=== PATIENT | male | born 1980 | race Caucasian/White ===

== ENCOUNTER 2024-02-29 01:40 | Emergency (ER) | payer OTHER ==
[2024-02-29] MEDS ORDERED: Ondansetron PF 4 MG/2 ML Vial ONE ×2 (02:09→09:33)
[2024-02-29] MEDS ORDERED: Sodium Chloride 0.9% 1,000 ML ONE ×2 (02:10→02:57)
[2024-02-29 02:25] LABS: #Lymphocytes 0.6 thou/uL (1.20-3.40); #Monocytes 0.5 thou/uL (0.11-0.59); #Neutrophils 7.9 thou/uL (1.40-6.50); %Basophils 0.3 % (0.0-1.0); %Eosinophils 0.2 % (0.0-10.0); %Lymphocytes 6.4 % (21.0-51.0); %Monocytes 5.6 % (0.0-10.0); %Neutrophils 87.5 % (42.0-75.0); Hematocrit 44.9 % (42.0-52.0); Hemoglobin 15.5 g/dL (14.0-18.0); Mean Corpuscular HGB CONC 34.5 g/dL (32.0-36.0); Mean Corpuscular Hemoglobin 30.4 pg (27.0-31.0); Mean Corpuscular Volume 88.2 fl (78.0-98.0); Mean Platelet Volume 7.2 fL (7.4-10.4); Platelet Count 264 10x3/uL (130-400); RBC Distribution Width 11.1 % (11.5-14.5); Red Blood Cell (RBC) Count 5.09 mill/uL (4.70-6.10); White Blood Cell (WBC) Count 9.1 10x3/uL (4.8-10.8)
[2024-02-29 02:29] LABS: ALT (SGPT) 17 U/L (8-55); AST (SGOT) 19 U/L (5-34); Albumin 4.4 g/dL (3.5-5.0); Alkaline Phosphatase 53 U/L (40-110); Anion Gap 19 mmol/L (10-20); BUN (Urea Nitrogen) 21 mg/dL (8.9-20.6); Bilirubin, Total 0.4 mg/dL (0.2-1.2); Calc. Creatinine Clearance 0 mL/min (70-130); Calcium 8.9 mg/dL (7.8-10.44); Carbon Dioxide 16 mmol/L (22-29); Chloride 105 mmol/L (98-107); Estimated GFR 74; Globulin 3.4 g/dL (2.4-3.5); Glucose 133 mg/dL (70-105); Lipase 150 U/L (8-78); Protein, Total 7.8 g/dL (6.0-8.3); Sodium 136 mmol/L (136-145)
[2024-02-29] MEDS ORDERED: Loperamide HCl 2 MG CAP ONE (02:30)
[2024-02-29 02:31] LABS: Troponin I Less than 0.010 ng/mL (< 0.028)
[2024-02-29] MEDS ORDERED: Morphine 2 MG/ML VIAL ONE (03:13)
[2024-02-29] MEDS ORDERED: Piperacillin/Tazobactam 4.5 GM VIAL ONE ×2 (05:14→11:24)
[2024-02-29] MEDS ORDERED: Pantoprazole 40 MG VIAL ONE (05:14)
[2024-02-29] MEDS ORDERED: Sodium Chloride 0.9% 100 ML ONE ×2 (05:14→11:25)
[2024-02-29 05:19] LABS: Troponin I 0.032 ng/mL (< 0.028)
[2024-02-29] MEDS ORDERED: Aspirin Chewable 81 MG TAB ONE (05:33)
[2024-02-29] MEDS ORDERED: Nitroglycerin 2% Ointment 1 INCH/1 GM Packet ONE ×2 (05:33→05:34)
[2024-02-29 08:23] LABS: Troponin I 0.044 ng/mL (< 0.028)
[2024-02-29] MEDS ORDERED: Iopamidol 370 76% 100 ML VIAL ONE (09:00)
[2024-02-29] MEDS ORDERED: Morphine 4 MG/ML VIAL ONE (12:10)
== END 2024-02-29 14:45 | disposition short-term general hospital (02) ==
LOC: NAV ERS 01:40
DX: K29.80 Duodenitis without bleeding (principal); R19.7 Diarrhea, unspecified; R10.9 Unspecified abdominal pain; R07.89 Other chest pain; R79.89 Other specified abnormal findings of blood chemistry; R74.8 Abnormal levels of other serum enzymes; Z87.891 Personal history of nicotine dependence
CPT/HCPCS: 74177; 80053; 83690; 84484; 85025; 93005; 96361; 96365; 96366; 96375; 96376; J2272; J2405; J2470; J2543; J7030; Q9967

== ENCOUNTER 2024-03-13 10:57 | Emergency (ER) | payer OTHER | END 2024-03-13 13:07 | LOC: NAV ERS 10:57 | DX: S39.012A Strain of muscle, fascia and tendon of lower back, initial encounter (principal); S66.912A Strain of unspecified muscle, fascia and tendon at wrist and hand level, left hand, initial encounter; S66.911A Strain of unspecified muscle, fascia and tendon at wrist and hand level, right hand, initial encounter; R51.9 Headache, unspecified; Z87.891 Personal history of nicotine dependence; W08.XXXA Fall from other furniture, initial encounter; W22.8XXA Striking against or struck by other objects, initial encounter; Y93.89 Activity, other specified | CPT/HCPCS: 70450; 72125 ==